=== PATIENT | female | born 1990 ===

== ENCOUNTER 2018-05-11 22:28 | Emergency (ER) | payer SELFPAY ==
--- NOTE | 2018-05-11 22:44 | ED PDOC ---
Arrival/HPI - General Chief Complaint: Back Pain Historian: Patient - History of Present Illness Narrative History of Present Illness (Text): 05/11/18 22:39 27 y/o female, no significant pmh, nkda, c/o lt. sided chest pain x 2 days. Aching and sharp pain, associated with palpitation and movement, no numbness or tingling, no night sweat, no rash, not constipated as she has her bowel movement today, no urinary symptoms, no night sweat, no other medical or psychological complaints. Past Medical History - Provider Review Nursing Documentation Reviewed: Yes - Infectious Disease Hx of Infectious Diseases: None - Reproductive Currently : No - Cardiac Hx Cardiac Disorders: No - Pulmonary Hx Respiratory Disorders: No - Neurological Hx Neurological Disorder: No - Psychiatric Hx Substance Use: No - Anesthesia Hx Anesthesia: No Family/Social History - Physician Review Nursing Documentation Reviewed: Yes Family/Social History: Unknown Family HX Smoking Status: Never Smoked Hx Alcohol Use: No Hx Substance Use: No Allergies/Home Meds Allergies/Adverse Reactions: Allergies No Known Allergies Allergy (Verified 05/11/18 22:31) Review of Systems - Review of Systems Constitutional: absent: Fatigue, Fevers Eyes: absent: Vision Changes ENT: absent: Hearing Changes Respiratory: absent: SOB, Cough Cardiovascular: Chest Pain Gastrointestinal: absent: Abdominal Pain, Diarrhea, Nausea, Vomiting Musculoskeletal: absent: Arthralgias, Back Pain Skin: absent: Rash, Pruritis Neurological: absent: Headache Psychiatric: absent: Anxiety, Depression Physical Exam Pain Distress: Moderate - Systems Exam Head: Present: Atraumatic, Normocephalic Pupils: Present: PERRL Extroacular Muscles: Present: EOMI Conjunctiva: Present: Normal Mouth: Present: Moist Mucous Membranes Nose (External): Present: Atraumatic. No: Abrasion, Contusion, Laceration Nose (Internal): Present: Normal Inspection, No Active Bleeding. No: Rhinorrhea, Septal Hematoma, Epistaxis Neck: Present: Normal Range of Motion, Trachea Midline. No: Meningeal Signs, MIDLINE TENDERNESS, Lymphadenopathy Respiratory/Chest: Present: Clear to Auscultation, Good Air Exchange, Tender to Palpation (pain is 100% reproducible by palpating the lt. lower anterior intercostalmuscle regions, no ecchymosis). No: Respiratory Distress, Accessory Muscle Use, Wheezes, Decreased Breath Sounds, Rales, Retracting, Rhonchi, Tachypneic Cardiovascular: Present: Regular Rate and Rhythm, Normal S1, S2. No: Murmurs Abdomen: No: Tenderness, Distention, Peritoneal Signs, Rebound, Guarding Back: Present: Normal Inspection, CVA Tenderness (lt. cva). No: Midline Tenderness, Paraspinal Tenderness, Pain with Leg Raise, Decubitus Ulcer Upper Extremity: Present: Normal Inspection, Normal ROM, NORMAL PULSES, Neurovascularly Intact, Capillary Refill < 2s. No: Cyanosis, Edema, Deformity Lower Extremity: Present: Normal Inspection, NORMAL PULSES, Normal ROM, Neurovascularly Intact, Capillary Refill < 2 s. No: Edema, Tenderness, Swelling, Deformity Neurological: Present: GCS=15, CN II-XII Intact, Speech Normal, Motor Func Grossly Intact, Gait Normal, Memory Normal Skin: Present: Warm, Dry, Normal Color. No: Rashes Psychiatric: Present: Alert, Oriented x 3, Normal Insight, Normal Concentration Medical Decision Making ED Course and Treatment: 05/11/18 22:49 -labs -ekg -cxr -iv toradol/pepcid/fluid -observe and reassess 05/12/18 00:17 -Urine hcg is negative -EKG: SB @ 56 BPM, no ST elevation or depression, no T wave inversion. -Chest xray: ER wet read: no active disease -Labs show no acute findings -Trop after 24 hours is negative -Dimer is negative -Pt. refused UA examination as she is asymptomatic, she wants to go home. -Pt. feels well, symptoms resolved, will discharge home. -Discharge home with motrin, flexeril, bed rest, ice compression, follow up with your own pmd within 2 days, return to the ER for any new or worsening signs ro symptoms. - RAD Interpretation Radiology Orders: no active disease Bridge Teacher: Radiologist - EKG Interpretation EKG Interpretation (Text): 05/12/18 00:17 SB @ 56 BPM, no ST elevation or depression, no T wave inversion. Type: 12 lead EKG - PA / ROUGH PLANER TENDER / Resident Statement / has reviewed & agrees with the documentation as recorded. Disposition/Present on Arrival - Present on Arrival Any Indicators Present on Arrival: No History of DVT/PE: No History of Uncontrolled Diabetes: No Urinary Catheter: No History of Decub. Ulcer: No History Surgical Site Infection Following: None - Disposition Have Diagnosis and Disposition been Completed?: Yes Diagnosis: Atypical chest pain Disposition: HOME/ ROUTINE Disposition Time: 00:18 Patient Plan: Discharge Condition: IMPROVED Discharge Instructions (ExitCare): Chest Pain (ED) Additional Instructions: -Discharge home with motrin, flexeril, bed rest, ice compression, follow up with your own pmd within 2 days, return to the ER for any new or worsening signs ro symptoms. Prescriptions: Cyclobenzaprine [Cyclobenzaprine HCl] 10 mg PO TID PRN #21 tab PRN Reason: Other Ibuprofen [Motrin] 600 mg PO QID PRN #30 tab PRN Reason: Other Referrals: Joe Fortune MD [Staff Provider] - Follow up with primary [facility] [place] [Outside] - Follow up with primary Forms: [facility] (Congolese), WORK NOTE
[2018-05-11] MEDS ORDERED: Sodium Chloride 0.9% 1,000 ML IV STA (22:45)
[2018-05-11 22:54] VITALS: RESP 18; O2SAT 100
[2018-05-11 23:11] LABS: BASO # 0.02 K/mm3 (0.0-2.0); BASO % 0.3 % (0.0-3.0); EOS # 0.1 (0.0-0.7); EOS % 1.8 % (1.5-5.0); HEMOGLOBIN 12.4 g/dL (12.0-16.0); LYMPH # 2.9 (1.2-3.4); LYMPH % 39.6 % (22.0-35.0); MEAN CELL VOLUME 88.6 fl (80.0-105.0); MEAN CORPUSCULAR HGB CONC 32.7 g/dl (31.0-37.0); MONO # 0.6 (0.1-0.6); MONO % 7.9 % (1.0-6.0); RBC 4.28 10^6/uL (3.5-6.1); RED CELL DISTRIBUTION WIDTH 13.1 % (11.5-14.5); WHITE BLOOD COUNT 7.2 10^3/uL (4.5-11.0)
[2018-05-11 23:29] LABS: ALB/GLOB RATIO 1.2 (1.1-1.8); ALBUMIN 4.2 g/dL (3.0-4.8); ALT/SGPT 12 U/L (7-56); AST/SGOT 22 U/L (14-36); BLOOD UREA NITROGEN 13 mg/dL (7-21); CALCIUM 9.5 mg/dL (8.4-10.5); GFR NON-AFRICAN AMERICAN > 60; LIPASE 88 U/L (23-300)
[2018-05-11 23:39] LABS: TROPONIN I < 0.01 ng/mL
[2018-05-12 00:34] VITALS: BP 115/68; PULSE 62; TEMP 98.2
--- NOTE | 2018-05-12 09:23 | RAD ---
Date of service: 05/11/2018 HISTORY: Left-sided chest pain COMPARISON: No prior. FINDINGS: LUNGS: No active pulmonary disease. PLEURA: No significant pleural effusion identified, no pneumothorax apparent. CARDIOVASCULAR: No aortic atherosclerotic calcification present. Normal cardiac size. No pulmonary vascular congestion. OSSEOUS STRUCTURES: No significant abnormalities. VISUALIZED UPPER ABDOMEN: Normal. OTHER FINDINGS: None. IMPRESSION: No active disease.
--- NOTE | 2018-05-12 20:12 | CARD ---
APPROVED REPORT Date of service: 05/11/2018 EKG Measurement Heart [id number] <Conclusion> Sinus bradycardia Otherwise normal ECG
== END 2018-05-12 00:33 | disposition home or self-care (01) ==
LOC: ED 22:28
DX: R07.89 Other chest pain (principal)
CPT/HCPCS: 71045; 80053; 81025; 83690; 84484; 85025; 85378; 93005; 96374; 96375; 99285; J1885; J7030